=== PATIENT | male | born 1970 | race African-American/Black ===

== ENCOUNTER 2017-06-25 23:32 | Emergency (ER) | payer SELFPAY ==
[2017-06-26] MEDS ORDERED: Ketorolac Tromethamine 30 MG/ML VIAL ONE (00:50)
--- NOTE | 2017-06-26 07:09 | RAD ---
PORTABLE AP CHEST: Date: 06/26/17 HISTORY: Injury after playing football. [place]imping. Right-sided rib pain. FINDINGS: Cardiac silhouette and pulmonary vasculature are within normal limits. Lungs are clear. Osseous stru ctures appear intact. IMPRESSION: No acute cardiopulmonary process. POS: [facility]
--- NOTE | 2017-06-26 07:10 | RAD ---
2 VIEWS RIGHT SIDE RIBS: Date: 06/26/17 HISTORY: Right-sided chest pain after playing football. Injury. FINDINGS: Right lung is clear. There is no pneumothorax or pleural effusion. No right-sided rib fracture visua lized. IMPRESSION: No right-sided rib fracture seen. POS: [facility]
--- NOTE | 2017-06-26 07:13 | RAD ---
LEFT ANKLE 3 VIEWS: Date: 06/25/17 HISTORY: Injury after playing football, left ankle pain. FINDINGS: There is an obliquely oriented fracture with approximately 2 mm of separation of fracture fragments involving the distal left fibula. Cortical osseous density is seen adjacent to the lateral malleolus , probably related to an accessory center of ossification. Ankle mortise is congruent. No additional fracture is seen and there is no dislocation. There is subcutaneous soft tissue swelling seen anter ior and lateral to the left ankle. There is also suggestion of a small joint effusion. IMPRESSION: 1. Minimally fracture involving the distal left fibula with overlying subcutaneous soft tissue swelling. 2. Small joint effusion. [place] [facility] [place]
== END 2017-06-26 02:18 | disposition home or self-care (01) ==
LOC: ERS 23:32
DX: S82.832A Other fracture of upper and lower end of left fibula, initial encounter for closed fracture (principal); F17.210 Nicotine dependence, cigarettes, uncomplicated; W22.8XXA Striking against or struck by other objects, initial encounter; Y93.61 Activity, american tackle football
CPT/HCPCS: 29515; 71010; 96372; J1885

== ENCOUNTER 2018-11-04 09:45 | Emergency (ER) | payer SELFPAY ==
[2018-11-04] MEDS ORDERED: traMADol HCl 50 MG TAB ONE (10:27)
== END 2018-11-04 10:30 | disposition home or self-care (01) ==
LOC: ERS 09:45
DX: K04.7 Periapical abscess without sinus (principal); F17.210 Nicotine dependence, cigarettes, uncomplicated; Z71.6 Tobacco abuse counseling
CPT/HCPCS: 99406

== ENCOUNTER 2022-02-26 09:36 | Inpatient (IN) | payer SELFPAY ==
[2022-02-26 10:52] VITALS: BMI 23.6
[2022-02-26] MEDS ORDERED: Ondansetron PF 4 MG/2 ML Vial IVP PRN (11:07)
[2022-02-26] MEDS ORDERED: Bisacodyl 5 MG TAB PO PRN (11:07)
[2022-02-26] MEDS ORDERED: Senokot S 8.6-50 MG TAB PO PRN (11:07)
[2022-02-26] MEDS ORDERED: Benzonatate 100 MG CAP PO PRN (11:07)
[2022-02-26] MEDS ORDERED: Ondansetron ODT 4 MG TAB PO PRN (11:07)
[2022-02-26] MEDS ORDERED: Acetaminophen 650 MG Suppository PR PRN (11:07)
[2022-02-26] MEDS ORDERED: Bisacodyl 10 MG SUPP PR PRN (11:07)
[2022-02-26] MEDS ORDERED: Nitroglycerin 0.4 MG TAB (25 Tab Bottle) SL PRN (11:07)
[2022-02-26 12:21] LABS: Prothrombin Time 13.4 sec (12.0-14.7)
[2022-02-26 12:22] LABS: PTT 27.8 sec (22.9-36.1)
[2022-02-26 12:24] LABS: Actual Bicarbonate (HCO3v) 22 mEq/L (22-28); Analyzer IN Cardio OR; Base Excess -0.3 mEq/L (-2.0 to +3.0); Calcium, Ionized (venous) 1.06 mmol/L (1.16-1.32); Chloride (VBG) 102 mmol/L (98-106); Hemoglobin (Hb) 14.6 g/dL (13.1-17.2); Lactic Acid 1.3 mmol/L (0.5-2.2); Potassium (VBG) 3.98 mmol/L (3.70-5.30); Sodium 136.4 mmol/L (133-146); pH (venous) 7.49 (7.32-7.43)
[2022-02-26 12:33] LABS: Troponin I 0.056 ng/mL (< 0.028)
[2022-02-26] MEDS: Acetaminophen 325 MG TAB PO PRN ×2 (13:40→18:52)
[2022-02-26] MEDS ORDERED: Magnesium 2 GM/50 ML(in water) 2 GM in Premix Bag 1 BAG IVPB SCH (15:00)
[2022-02-26 15:03] LABS: Troponin I 0.046 ng/mL (< 0.028)
[2022-02-26] MEDS: Furosemide 20 MG/2 ML VIAL SLOW IVP SCH (15:30)
[2022-02-26 17:47] LABS: Hemoglobin A1c 4.8 % (4.0-6.0)
[2022-02-26] MEDS: Carvedilol 6.25 MG TAB PO SCH (18:51)
[2022-02-26] MEDS: Famotidine 20 MG TAB PO SCH (20:16)
[2022-02-27 05:40] LABS: ALT (SGPT) 30 U/L (8-55); AST (SGOT) 37 U/L (5-34); Alkaline Phosphatase 85 U/L (40-110); Bilirubin, Direct 0.3 mg/dL (0.1-0.3); Bilirubin, Total 0.6 mg/dL (0.2-1.2); Protein, Total 7.8 g/dL (6.0-8.3)
[2022-02-27 05:46] LABS: Anion Gap 15 mmol/L (10-20); BUN (Urea Nitrogen) 21 mg/dL (8.4-25.7); CRP (Inflammatory) 1.53 mg/dL (= or < 0.5); Calc. Creatinine Clearance 58 mL/min (70-130); Calcium 9.8 mg/dL (7.8-10.44); Carbon Dioxide 26 mmol/L (22-29); Cardiac Risk 4.2 (Less than 4.5); Chloride 99 mmol/L (98-107); Cholesterol 197 mg/dl (< 200 Desired); Glucose 111 mg/dL (70-105); HDL Cholesterol 47 mg/dL (>60 Neg Risk); LDL Cholesterol, Calculated 131 mg/dL; Magnesium 2.4 mg/dL (1.6-2.6); Potassium 4.1 mmol/L (3.5-5.1); Sodium 136 mmol/L (136-145); Triglycerides 97 mg/dL (Less than 150)
[2022-02-27] MEDS: Furosemide 20 MG/2 ML VIAL SLOW IVP SCH (05:46)
[2022-02-27 05:53] LABS: #Eosinphils 0.1 thou/uL (0.0-0.7); #Lymphocytes 1.4 thou/uL (1.20-3.40); #Monocytes 0.5 thou/uL (0.11-0.59); #Neutrophils 1.7 thou/uL (1.40-6.50); %Eosinophils 1.5 % (0.0-10.0); %Lymphocytes 37.7 % (21.0-51.0); %Monocytes 14.2 % (0.0-10.0); %Neutrophils 45.6 % (42.0-75.0); Hemoglobin 15.2 g/dL (14.0-18.0); MDiff Complete? YES; Macrocytosis SLIGHT = 6-15 cells (100X) (0-5/hpf); Mean Corpuscular HGB CONC 32.2 g/dL (32.0-36.0); Mean Corpuscular Hemoglobin 34.7 pg (27.0-31.0); Mean Platelet Volume 7.2 fL (7.4-10.4); Platelet Count 269 thou/uL (130-400); RBC Distribution Width 11.7 % (11.5-14.5); Red Blood Cell (RBC) Count 4.39 mill/uL (4.70-6.10); White Blood Cell (WBC) Count 3.7 thou/uL (4.8-10.8)
[2022-02-27] MEDS ORDERED: Furosemide 20 MG TAB PO SCH (09:15)
[2022-02-27] MEDS: Famotidine 20 MG TAB PO SCH ×2 (09:31→21:47)
[2022-02-27] MEDS: Valsartan 80 MG TAB PO SCH (09:32)
[2022-02-27] MEDS: Carvedilol 6.25 MG TAB PO SCH ×2 (09:32→17:29)
[2022-02-27] MEDS: Aspirin Chewable 81 MG TAB PO SCH (09:32)
[2022-02-27] MEDS: Enoxaparin Sodium 40 MG/0.4 ML SYRINGE SC SCH (09:32)
[2022-02-27] MEDS: Spironolactone 25 MG TAB PO SCH (09:32)
[2022-02-28 04:57] LABS: #Eosinphils 0.1 thou/uL (0.0-0.7); #Lymphocytes 1.8 thou/uL (1.20-3.40); #Monocytes 0.4 thou/uL (0.11-0.59); #Neutrophils 1.8 thou/uL (1.40-6.50); %Eosinophils 2.1 % (0.0-10.0); %Lymphocytes 43.8 % (21.0-51.0); %Monocytes 8.9 % (0.0-10.0); %Neutrophils 44.2 % (42.0-75.0); Hemoglobin 15.7 g/dL (14.0-18.0); Mean Corpuscular HGB CONC 32.8 g/dL (32.0-36.0); Mean Corpuscular Hemoglobin 35.4 pg (27.0-31.0); Mean Platelet Volume 7.3 fL (7.4-10.4); Platelet Count 268 thou/uL (130-400); RBC Distribution Width 11.8 % (11.5-14.5); Red Blood Cell (RBC) Count 4.45 mill/uL (4.70-6.10); White Blood Cell (WBC) Count 4.1 thou/uL (4.8-10.8)
[2022-02-28 06:29] LABS: Anion Gap 17 mmol/L (10-20); BUN (Urea Nitrogen) 26 mg/dL (8.4-25.7); Calc. Creatinine Clearance 49 mL/min (70-130); Calcium 9.7 mg/dL (7.8-10.44); Carbon Dioxide 25 mmol/L (22-29); Chloride 100 mmol/L (98-107); Glucose 105 mg/dL (70-105); Magnesium 2.2 mg/dL (1.6-2.6); Potassium 4.3 mmol/L (3.5-5.1); Sodium 138 mmol/L (136-145)
[2022-02-28 08:20] VITALS: BP 125/87; TEMP 97.5
[2022-02-28] MEDS ORDERED: Furosemide 20 MG TAB PO SCH (09:00)
[2022-02-28] MEDS: Valsartan 80 MG TAB PO SCH (09:41)
[2022-02-28] MEDS: Famotidine 20 MG TAB PO SCH (09:41)
[2022-02-28] MEDS: Enoxaparin Sodium 40 MG/0.4 ML SYRINGE SC SCH (09:41)
[2022-02-28] MEDS: Aspirin Chewable 81 MG TAB PO SCH (09:41)
[2022-02-28] MEDS: Spironolactone 25 MG TAB PO SCH (09:41)
[2022-02-28] MEDS: Carvedilol 6.25 MG TAB PO SCH (09:41)
== END 2022-02-28 10:10 | disposition left against medical advice (07) | DRG 291 ==
LOC: 2SW 10:20
PROVIDERS: ADMIT Family Medicine; ATTEND Internal Medicine
PROC: 8E0ZXY6 Isolation (ICD-10-PCS; principal; 2022-02-26)
DX: I11.0 Hypertensive heart disease with heart failure (principal); U07.1 COVID-19; I50.23 Acute on chronic systolic (congestive) heart failure; I47.2 Ventricular tachycardia; I25.5 Ischemic cardiomyopathy; F12.10 Cannabis abuse, uncomplicated; F10.10 Alcohol abuse, uncomplicated; I42.0 Dilated cardiomyopathy; F17.200 Nicotine dependence, unspecified, uncomplicated; I08.2 Rheumatic disorders of both aortic and tricuspid valves; Z53.21 Procedure and treatment not carried out due to patient leaving prior to being seen by health care provider; Z91.14 Patient's other noncompliance with medication regimen; Z79.899 Other long term (current) drug therapy; Z79.82 Long term (current) use of aspirin
CPT/HCPCS: 36415; 80048; 80061; 80076; 82805; 83036; 83605; 83735; 84145; 84443; 85025; 85610; 85730; 86140; 86850; 86900; 86901; 93005; 93010; 93306; 93798; J1650; J1940; J3475

== ENCOUNTER 2023-07-24 01:58 | Inpatient (IN) | payer SELFPAY ==
[2023-07-24] MEDS ORDERED: Ipratropium/Albuterol 3 ML NEB ONE ×2 (02:08→18:10)
[2023-07-24 02:34] LABS: #Eosinphils 0.1 thou/uL (0.0-0.7); #Monocytes 0.3 thou/uL (0.11-0.59); #Neutrophils 5.1 thou/uL (1.40-6.50); %Basophils 0.3 % (0.0-1.0); %Eosinophils 1.3 % (0.0-10.0); %Monocytes 4.7 % (0.0-10.0); %Neutrophils 73.4 % (42.0-75.0); Hemoglobin 12.2 g/dL (14.0-18.0); Mean Corpuscular Hemoglobin 35.1 pg (27.0-31.0); Mean Corpuscular Volume 106.3 fl (78.0-98.0); Platelet Count 278 10x3/uL (130-400); Red Blood Cell (RBC) Count 3.48 mill/uL (4.70-6.10)
[2023-07-24 02:58] LABS: ALT (SGPT) 46 U/L (8-55); AST (SGOT) 103 U/L (5-34); Alkaline Phosphatase 84 U/L (40-110); Anion Gap 18 mmol/L (10-20); BUN (Urea Nitrogen) 16 mg/dL (8.4-25.7); Bilirubin, Total 0.4 mg/dL (0.2-1.2); Calc. Creatinine Clearance 0 mL/min (70-130); Calcium 8.6 mg/dL (7.8-10.44); Carbon Dioxide 21 mmol/L (22-29); Chloride 102 mmol/L (98-107); Estimated GFR 68; Globulin 2.9 g/dL (2.4-3.5); Glucose 116 mg/dL (70-105); Potassium 3.8 mmol/L (3.5-5.1); Protein, Total 6.9 g/dL (6.0-8.3); Sodium 137 mmol/L (136-145)
[2023-07-24 03:02] LABS: Troponin I 0.051 ng/mL (< 0.028)
[2023-07-24] MEDS ORDERED: Furosemide 100 MG/10 ML VIAL ONE (03:02)
[2023-07-24] MEDS ORDERED: Aspirin Chewable 81 MG TAB ONE (03:03)
[2023-07-24 03:31] LABS: Prothrombin Time 13.5 sec (12.0-14.7)
[2023-07-24 03:32] LABS: PTT 27.4 sec (22.9-36.1)
[2023-07-24 03:40] LABS: Actual Bicarbonate (HCO3a) 25.7 mEq/L (22-28); Analyzer IN Cardio ER; Base Excess (BEa) 0.9 mEq/L (-2.0 to +3.0); CO2 Tension 41.4 mmHg (35.0-45.0); Calcium, Ionized (arterial) 1.09 mmol/L (1.12-1.30); Carboxyhemoglobin (COHb) 5.2 gm% (0.0-3.0); Hematocrit-ABG 40 % (42.0-52.0); Hemoglobin (Hb) 13.5 g/dL (14.0-18.0); Potassium - ABG Lab 3.68 mmol/L (3.70-5.30)
[2023-07-24 03:44] LABS: O2 Tension (PaO2), arterial 45.5 mmHg (80.0-100.0)
[2023-07-24 03:45] LABS: Puncture Site RRA
[2023-07-24] MEDS ORDERED: Acetaminophen 325 MG TAB PO PRN (03:54)
[2023-07-24] MEDS ORDERED: Acetaminophen 650 MG Suppository PR PRN (03:54)
[2023-07-24] MEDS ORDERED: Ipratropium/Albuterol 3 ML NEB NEB PRN (03:58)
[2023-07-24 04:41] LABS: Troponin I 0.078 ng/mL (< 0.028)
[2023-07-24 06:08] LABS: Lactic Acid 2.2 mmol/L (0.5-2.2)
[2023-07-24] MEDS: Ipratropium/Albuterol 3 ML NEB NEB SCH ×5 (06:46→22:28)
[2023-07-24 06:54] VITALS: BMI 26.4
[2023-07-24] MEDS ORDERED: Carvedilol 6.25 MG TAB ONE (08:00)
[2023-07-24] MEDS ORDERED: Furosemide 40 MG/4 ML VIAL ONE (08:00)
[2023-07-24] MEDS ORDERED: Aspirin 81 mg Enteric Coated Tablet ONE (08:00)
[2023-07-24 08:53] LABS: Troponin I 0.094 ng/mL (< 0.028)
[2023-07-24] MEDS: Valsartan 80 MG TAB PO SCH (08:56)
[2023-07-24] MEDS: Aspirin 81 mg Enteric Coated Tablet PO SCH (08:56)
[2023-07-24] MEDS: Carvedilol 6.25 MG TAB PO SCH ×2 (08:56→20:21)
[2023-07-24] MEDS: Spironolactone 25 MG TAB PO SCH (08:56)
[2023-07-24] MEDS: Furosemide 40 MG/4 ML VIAL SLOW IVP SCH (09:55)
[2023-07-24] MEDS ORDERED: Acetaminophen 325 MG TAB ONE (11:08)
[2023-07-24] MEDS ORDERED: traMADol HCl 50 MG TAB PO PRN ×2 (11:24)
[2023-07-24 12:10] LABS: SARS-CoV-2 NAA Rapid Test Not Detected (NotDetected)
[2023-07-25] MEDS: Ipratropium/Albuterol 3 ML NEB NEB SCH ×3 (02:23→10:46)
[2023-07-25 04:41] LABS: #Eosinphils 0.1 thou/uL (0.0-0.7); #Monocytes 0.5 thou/uL (0.11-0.59); #Neutrophils 4.4 thou/uL (1.40-6.50); %Basophils 0.4 % (0.0-1.0); %Eosinophils 1.4 % (0.0-10.0); %Lymphocytes 36.6 % (21.0-51.0); %Monocytes 6.6 % (0.0-10.0); %Neutrophils 54.8 % (42.0-75.0); Hematocrit 40.6 % (42.0-52.0); Hemoglobin 13.2 g/dL (14.0-18.0); Mean Corpuscular HGB CONC 32.5 g/dL (32.0-36.0); Mean Corpuscular Hemoglobin 34.5 pg (27.0-31.0); Mean Platelet Volume 9.4 fL (7.4-10.4); Platelet Count 325 10x3/uL (130-400); Red Blood Cell (RBC) Count 3.83 mill/uL (4.70-6.10); White Blood Cell (WBC) Count 8.1 10x3/uL (4.8-10.8)
[2023-07-25 05:28] LABS: Anion Gap 15 mmol/L (10-20); BUN (Urea Nitrogen) 28 mg/dL (8.4-25.7); Calc. Creatinine Clearance 74 mL/min (70-130); Calcium 9.1 mg/dL (7.8-10.44); Carbon Dioxide 26 mmol/L (22-29); Chloride 101 mmol/L (98-107); Estimated GFR 68; Glucose 103 mg/dL (70-105); Sodium 138 mmol/L (136-145)
[2023-07-25] MEDS: Valsartan 80 MG TAB PO SCH (09:32)
[2023-07-25] MEDS: Furosemide 40 MG/4 ML VIAL SLOW IVP SCH (09:33)
[2023-07-25] MEDS: Aspirin 81 mg Enteric Coated Tablet PO SCH (09:33)
[2023-07-25] MEDS: Carvedilol 6.25 MG TAB PO SCH ×2 (09:33→17:49)
[2023-07-25] MEDS: Spironolactone 25 MG TAB PO SCH (09:33)
[2023-07-25 15:48] VITALS: TEMP 97.6
[2023-07-25 17:49] VITALS: BP 130/87
== END 2023-07-25 17:56 | disposition home or self-care (01) | DRG 280 ==
LOC: ERS 01:58 → ERHOLD 03:37 → 2NO 17:56
PROVIDERS: ADMIT Student in an Organized Health Care Education/Training Program; ATTEND Emergency Medicine
PROC: 4A033R1 Measurement of Arterial Saturation, Peripheral, Percutaneous Approach (ICD-10-PCS; principal; 2023-07-24)
PROC: 5A09357 Assistance with Respiratory Ventilation, Less than 24 Consecutive Hours, Continuous Positive Airway Pressure (ICD-10-PCS; 2023-07-24)
DX: I11.0 Hypertensive heart disease with heart failure (principal); I50.23 Acute on chronic systolic (congestive) heart failure; I21.A1 Myocardial infarction type 2; J96.01 Acute respiratory failure with hypoxia; E87.20 Acidosis, unspecified; F17.210 Nicotine dependence, cigarettes, uncomplicated; D64.9 Anemia, unspecified; J44.9 Chronic obstructive pulmonary disease, unspecified; Z79.82 Long term (current) use of aspirin; Z79.899 Other long term (current) drug therapy; Z91.148 Patient's other noncompliance with medication regimen for other reason; Z11.52 Encounter for screening for COVID-19
CPT/HCPCS: 36415; 36600; 71045; 71275; 80048; 80053; 82805; 83605; 83880; 84484; 85025; 85610; 85730; 93005; 93798; 94640; 94660; 94760; J1650; J1940; J7620